=== PATIENT | female | born 1990 ===

== ENCOUNTER → 2024-01-26 | Outpatient (CLI) | payer OTHER ==
[2024-02-02 17:15] LABS: HPV HIGH RISK BY TMA Not Detected; HPV SOURCE Cervical
== END ==
LOC: LAB 09:35 → LAB SHORT 09:35
PROVIDERS: Obstetrics & Gynecology
DX: Z01.419 Encounter for gynecological examination (general) (routine) without abnormal findings (principal)
CPT/HCPCS: 87624; G0123